=== PATIENT | female | born 1950 | race Caucasian/White ===

== ENCOUNTER 2016-11-19 09:21 | Outpatient (CLI) | payer MEDICARE, MEDICAID ==
[2015-08-01 14:02] VITALS: O2SAT 97
== END 2016-11-19 09:22 | disposition home or self-care (01) | DRG 554 ==
LOC: CONVCARE 09:21
PROVIDERS: ATTEND Orthopaedic Surgery
DX: M18.9 Osteoarthritis of first carpometacarpal joint, unspecified (principal)
CPT/HCPCS: 73140

== ENCOUNTER 2018-09-15 06:37 | Day surgery (SDC) | payer MEDICARE, MEDICAID ==
[2018-09-15 07:13] LABS: INR 1.46 (0.86-1.12)
[2018-09-15] MEDS ORDERED: BUPIVACAINE HCL 0.25% MPF 30 ML SOL INFIL ONE (07:31)
[2018-09-15] MEDS: DEXAMETHASONE SOD PHOS PF 10 MG/ML SOL IJ ONE ×2 (07:48→07:50)
[2018-09-15 11:54] VITALS: O2SAT 98
[2018-09-15 11:55] VITALS: RESP 16
[2018-09-15 11:56] VITALS: BP 108/73; PULSE 63; TEMP 98.1
== END 2018-09-15 11:10 | disposition home or self-care (01) | DRG 552 ==
LOC: SURG 06:37 → ACUTE CARE 08:45 → SURG 11:10
PROVIDERS: ATTEND Nurse Anesthetist, Certified Registered
DX: M48.062 Spinal stenosis, lumbar region with neurogenic claudication (principal); E11.9 Type 2 diabetes mellitus without complications
CPT/HCPCS: 85610; J1100